=== PATIENT | male | born 1965 | race Caucasian/White ===

== ENCOUNTER 2020-10-03 00:30 | Emergency (ER) | payer OTHER ==
[~2020-10-03] VITALS: Ht 175.3 cm; Wt 74.8 kg
[2020-10-03 00:39] VITALS: Ht 175.3 cm; Wt 74.8 kg
[2020-10-03 06:05] VITALS: BP 98/62
== END 2020-10-03 06:05 | disposition home or self-care (01) ==
LOC: ED 00:30
DX: S82.62XA Displaced fracture of lateral malleolus of left fibula, initial encounter for closed fracture (principal); J45.909 Unspecified asthma, uncomplicated; Z88.0 Allergy status to penicillin; X58.XXXA Exposure to other specified factors, initial encounter; Y93.89 Activity, other specified; Y92.89 Other specified places as the place of occurrence of the external cause; Y99.8 Other external cause status